=== PATIENT | female | born 1995 | race Caucasian/White ===

== ENCOUNTER 2018-10-11 21:53 | Inpatient (IN) | payer MEDICAID ==
[~2018-10-11] VITALS: Ht 152.4 cm; Wt 69.4 kg
[2018-10-11 22:35] VITALS: BP 137/89; PULSE 69; RESP 18
[2018-10-11] MEDS ORDERED: LACTATED RINGER'S 1,000 ML IV PRN (22:56)
[2018-10-11] MEDS ORDERED: METHYLERGONOVINE 0.2 MG INJ IM PRN (23:00)
[2018-10-11] MEDS ORDERED: IBUPROFEN 600 MG TAB PO PRN (23:00)
[2018-10-11] MEDS ORDERED: LIDOCAINE 1% (MPF) 30 ML INJ INJ PRN (23:00)
[2018-10-11] MEDS ORDERED: OXYTOCIN 30 UNITS/LR 500 ML IV PRN (23:00)
[2018-10-11] MEDS ORDERED: OXYTOCIN 30 UNITS/LR 500 ML IV SCH (23:00)
[2018-10-11] MEDS ORDERED: BUTORPHANOL 2 MG INJ IV PRN (23:00)
[2018-10-11] MEDS ORDERED: MISOPROSTOL 200 MCG TAB PR PRN (23:00)
[2018-10-11] MEDS ORDERED: PREN-93 PO (23:12)
[2018-10-11] MEDS: LACTATED RINGER'S 1,000 ML IV SCH (23:48)
[2018-10-12] MEDS ORDERED: FENTAnyl 2MCG/ML-ROPIV 0.2% 100 ML ONE (02:30)
--- NOTE | 2018-10-12 02:36 | PREAC ---
Date/Time of Note Date/Time of Note DATE: 10/12/18 TIME: 02:36 Anesthesia Eval and Record Evaluation Time Pre-Procedure Interview DATE: 10/12/18 TIME: 02:36 Age 22 Sex female NPO: Other (na) Preoperative diagnosis labor pain Planned procedure epidural Past Medical History Past Medical History: None Surgery & Anesthesia Issues No known issue Meds Anticoagulation: No Beta Rain within 24 hr: No Reason Beta Rain not given: Pt. not on B-Rain Reported Medications Vit No.124/Iron/FA ( Vitamin Tablet) 1 Each Tablet, 1 EACH PO, TAB 10/11/18 Current Medications Lactated Ringer's 1,000 ml @ 125 mls/hr Q8H IV Last administered on 10/11/18at 23:48; Admin Dose 125 MLS/HR; Start 10/11/18 at 22:56 Butorphanol Tartrate (Stadol) 2 mg Q2H PRN IV .PAIN; Start 10/11/18 at 23:00 Lidocaine (Xylocaine 1% (Mpf)) 30 ml ONCE PRN INJ .EPISIOTOMY; Start 10/11/18 at 23:00 Oxytocin/Lactated Ringer's 500 ml @ 500 mls/hr ONCE POST IV ; Start 10/11/18 at 23:00 Oxytocin/Lactated Ringer's 500 ml @ 125 mls/hr POST IV ; Start 10/11/18 at 23:00 Ibuprofen (Motrin) 600 mg ONCE PRN PO .PAIN 1-5; Start 10/11/18 at 23:00 Lactated Ringer's 1,000 ml @ 2,000 mls/hr Q30M PRN IV .ANESTHESIA; Start 10/11/18 at 22:56 Oxytocin/Lactated Ringer's 500 ml @ 0 mls/hr ONCE PRN IV .VAGINAL BLEEDING; Start 10/11/18 at 23:00 Methylergonovine Maleate (Methergine) 0.2 mg ONCE PRN IM .VAGINAL BLEEDING; Start 10/11/18 at 23:00 Carboprost Tromethamine (Hemabate) 250 mcg ONCE PRN IM .VAGINAL BLEEDING; Start 10/11/18 at 23:00 Misoprostol (Cytotec) 1,000 mcg ONCE PRN [place] .VAGINAL BLEEDING; Start 10/11/18 at 23:00 Meds reviewed: Yes Allergies Coded Allergies: No Known Allergies (Verified Allergy, Unknown, 10/11/18) No Known Allergy (Unverified , 10/11/18) Allergies Reviewed: Yes Labs/Studies Labs Reviewed: Reviewed by anesthesiologist Result Diagram: 10/11/18 2330 10/11/18 2330 Laboratory Tests 10/11/18 23:30 Blood Bank Test 10/11/18 23:30 Antibody Screen NEGATIVE Blood Type O POSITIVE Rh Immune Globulin Candidate NO test: N/A Pre-procedure Exam Last vitals Vital Signs Date Temp Pulse Resp B/P (MAP) Pulse Ox O2 O2 Flow FiO2 Time Delivery Rate 10/11/18 98.2 69 18 137/89 Room Air 22:35 (105) Airway: Adequate mouth opening, Adequate thyromental dist Mallampati: Mallampati IV Teeth: Normal Lung: Normal Heart: Normal ASA Physical Status ASA physical status: 2 Emergency: None Pre-operative Attestations Prior to commencing anesthesia and surgery, the patient was re-evaluated, there was verification of: *The patient's identity *The results of appropriate recent lab work and preoperative vital signs *The above evaluation not changing prior to induction *Anesthetic plan, risk benefits, alternative and complications discussed with patient/family; questions answered; patient/family understands, accepts and wishes to proceed. BON SALMON DO Oct 12, 2018 02:36
[2018-10-12] MEDS ORDERED: DIPHENHYDRAMINE 50 MG INJ IV PRN (03:00)
[2018-10-12] MEDS ORDERED: FENTAnyl 2MCG/ML-ROPIV 0.2% 100 ML BAG EPI SCH (03:00)
[2018-10-12] MEDS ORDERED: ONDANSETRON 4 MG INJ IV PRN (03:00)
[2018-10-12] MEDS ORDERED: NALOXONE (0.4 MG/ML) INJ IV PRN (03:00)
[2018-10-12] MEDS: LACTATED RINGER'S 1,000 ML IV SCH (03:14)
--- NOTE | 2018-10-12 09:21 | HP ---
Date/Time of Note Date/Time of Note DATE: 10/12/18 TIME: 09:20 OB - History Hx of Present Chief Complaint: contractions Estimated Due Date: Oct 21, 2018 : 1 Para: 0 Spontaneous : 0 Therapeutic : 0 Care: Good Care Ultrasounds: Normal mid trimester US Obstetrical Complications: None Medical Complications: None Past Family/Social History * Past Medical, Surgical, Family and Obstetric Histories reviewed from chart. GBS Status: Negative OB Admission Exam Vital Signs Vital Signs Vital Signs Date Temp Pulse Resp B/P (MAP) Pulse Ox O2 O2 Flow FiO2 Time Delivery Rate 10/11/18 98.2 69 18 137/89 Room Air 22:35 (105) Physical Exam HEENT: WNL Heart: Rhythm Normal Lungs: Clear, Equal Abdomen: WNL Extremities: Normal Reflexes: Normal Cervical Dilatation: 3cm Effacement: 75% Station: -1 Membranes: Ruptured Amniotic Fluid: Clear Heart Rate: 120's Accelerations: Accelerations Present Decelerations: No Decelerations Varibility: Moderate Last 72 hours Lab Results CBC & BMP 10/11/18 23:30 Liver Function Test 10/11/18 23:30 Alanine Aminotransferase (ALT/SGPT) 26 Albumin 3.6 Alkaline Phosphatase 174 H Aspartate Amino Transf (AST/SGOT) 19 Direct Bilirubin 0.00 Total Protein 7.1 OB Assessment/Plan Reason for admission: active labor Plan: Expectant Management KAVITA GAITAN MD Oct 12, 2018 09:21
[2018-10-12] MEDS: CARBOPROST 250 MCG INJ IM PRN ×2 (10:26→10:47)
[2018-10-12] MEDS ORDERED: TRANEXAMIC ACID 1GM/100ML(PMX) 100 ML IVPB ONE (11:00)
[2018-10-12] MEDS ORDERED: ONDANSETRON 4 MG INJ IV STA (11:13)
[2018-10-12] MEDS: OXYTOCIN 30 UNITS/LR 500 ML IV SCH ×2 (11:25→13:07)
[2018-10-12] MEDS ORDERED: CEFAZOLIN 2 GM/50 ML (PMX) 50 ML IVPB ONE (11:30)
[2018-10-12] MEDS ORDERED: KETOROLAC 30 MG INJ IV STA (12:31)
[2018-10-12] MEDS ORDERED: LACTATED RINGER'S 1,000 ML IV* SCH (13:55)
[2018-10-12] MEDS ORDERED: BENZOCAINE 20% 56 ML SPRAY TOP PRN (14:00)
[2018-10-12] MEDS ORDERED: DIBUCAINE 1% 30 GM OINT TOP PRN (14:00)
[2018-10-12] MEDS ORDERED: OXYTOCIN 30 UNITS/LR 500 ML IV PRN (14:00)
[2018-10-12] MEDS ORDERED: CARBOPROST 250 MCG INJ IM PRN (14:00)
[2018-10-12] MEDS ORDERED: METHYLERGONOVINE 0.2 MG INJ IM PRN (14:00)
[2018-10-12] MEDS ORDERED: MISOPROSTOL 200 MCG TAB PR PRN (14:00)
[2018-10-12] MEDS ORDERED: ACETAMINOPHEN 325 MG TAB PO PRN (14:00)
[2018-10-12] MEDS ORDERED: WITCH HAZEL/GLYCERIN PAD PR PRN (14:00)
[2018-10-12] MEDS ORDERED: HYDROCODONE/APAP (5/325) TAB PO PRN (14:00)
[2018-10-12 15:00] VITALS: BP 114/77; PULSE 106; RESP 16
[2018-10-12 16:30] VITALS: BP 124/82; PULSE 98; RESP 20
[2018-10-12 17:32] VITALS: BP 119/81; PULSE 94; RESP 20
[2018-10-12] MEDS: IBUPROFEN 600 MG TAB PO SCH ×2 (18:10→23:39)
[2018-10-12 18:30] VITALS: BP 118/84; PULSE 89; RESP 18
[2018-10-12 19:45] VITALS: BP 118/70; PULSE 93; RESP 18
--- NOTE | 2018-10-12 19:53 | LDN ---
Date/Time of Note Date/Time of Note DATE: 10/12/18 TIME: 19:49 Delivery Summary over intact perineum. Uterine atony noted. Oxytocin, Methergine, Hemabate, Cytotec and tranexamic acid given. Using large curette, sharp curettage was performed. Placenta Delivered: Spontaneously Meconium: none Episiotomy: No Laceration repair: First degree perineal laceration repaired with 3-0 Vicryl. Anesthesia type: Epidural Estimated blood loss: 1000 Sponge & Needle done & correct: Yes All needle counts correct: Yes Any foreign bodies felt in the: No Delivery Information Sex Infant Sex: male Apgars 1 Minute: 9 5 Minute: 9 Suctioning Nose & mouth suctioned at deidre: No Delee suction performed: No Umbilical Cord Umbilical cord with: 3 Vessels Cord presentations: nuchal cord Nuchal cord present X: 1 Cord Blood was obtained: Yes Mother & Baby Disposition Disposition Mom & Baby to Maternity; Good: Yes KAVITA GAITAN MD Oct 12, 2018 19:53
[2018-10-12] MEDS: SENNA/DOCUSATE NA (8.6MG/50MG) TAB PO SCH (20:49)
[2018-10-12] MEDS: FERROUS SULFATE (EC) 325 MG TAB PO SCH (20:49)
[2018-10-13] VITALS: BP 120/82; PULSE 105; RESP 18
[2018-10-13 04:00] VITALS: BP 115/72; PULSE 101; RESP 18
[2018-10-13] MEDS: IBUPROFEN 600 MG TAB PO SCH ×4 (05:32→23:46)
[2018-10-13] MEDS: SENNA/DOCUSATE NA (8.6MG/50MG) TAB PO SCH ×2 (08:05→21:00)
[2018-10-13 08:25] VITALS: BP 114/61; PULSE 101; RESP 18
[2018-10-13] MEDS: FERROUS SULFATE (EC) 325 MG TAB PO SCH ×3 (08:58→21:30)
[2018-10-13] MEDS: FOLIC ACID 1 MG TAB PO SCH (15:58)
[2018-10-13] MEDS: PRENATAL VITAMIN PO SCH (15:58)
[2018-10-13 15:59] VITALS: BP 112/67; PULSE 91; RESP 20
--- NOTE | 2018-10-13 19:19 | QN ---
Documentation Comment No complaint Afebrile VSS Fundus firm Lochia scant Hct 20 Stable patient is asymptomatic Fe supplement CBC Kate. KAVITA GAITAN MD Oct 13, 2018 19:19
[2018-10-13 20:00] VITALS: BP 130/72; PULSE 116; RESP 20
[2018-10-14 03:23] VITALS: BP 128/62; PULSE 78; RESP 20
[2018-10-14] MEDS: IBUPROFEN 600 MG TAB PO SCH ×4 (05:29→23:58)
[2018-10-14 08:00] VITALS: BP 113/60; PULSE 93; RESP 16
[2018-10-14] MEDS ORDERED: DIPHTH/TET/ACEL PERTUSS (ADULT) 0.5 ML VIAL IM* ONE (09:00)
[2018-10-14] MEDS: PRENATAL VITAMIN PO SCH (10:25)
[2018-10-14] MEDS: FERROUS SULFATE (EC) 325 MG TAB PO SCH ×3 (10:25→21:43)
[2018-10-14] MEDS: FOLIC ACID 1 MG TAB PO SCH (10:25)
[2018-10-14] MEDS: SENNA/DOCUSATE NA (8.6MG/50MG) TAB PO SCH ×2 (10:25→21:43)
[2018-10-14 12:00] VITALS: BP 110/60; PULSE 94; RESP 20
--- NOTE | 2018-10-14 14:44 | QN ---
Documentation Comment Patient c/o headache and dizziness. No other complaint Afebrile VSS Fundus firm Lochia scant Hgb 6.7 Patient counseled about the option of receiving blood transfusion. Risks, benefits and alternatives were explained to the patient who stated she understood and gave informed consent. Will transfuse one unit of RBC. KAVITA GAITAN MD Oct 14, 2018 14:44
[2018-10-14] MEDS ORDERED: SOD CHLORIDE 0.9% 1,000 ML IV SCH (15:55)
[2018-10-14 16:00] VITALS: BP 119/76; PULSE 76; RESP 18
[2018-10-14 20:00] VITALS: BP 116/67; PULSE 84; RESP 18
[2018-10-15 03:53] VITALS: BP 111/74; PULSE 76; RESP 17
[2018-10-15] MEDS: IBUPROFEN 600 MG TAB PO SCH ×2 (05:44→11:42)
[2018-10-15 07:30] VITALS: BP 128/72; PULSE 74; RESP 18
[2018-10-15] MEDS: PRENATAL VITAMIN PO SCH (10:45)
[2018-10-15] MEDS: FOLIC ACID 1 MG TAB PO SCH (10:45)
[2018-10-15] MEDS: SENNA/DOCUSATE NA (8.6MG/50MG) TAB PO SCH (10:45)
[2018-10-15] MEDS: FERROUS SULFATE (EC) 325 MG TAB PO SCH ×2 (10:47→14:01)
--- NOTE | 2018-10-15 14:32 | DS ---
Date/Time of Note Date/Time of Note DATE: 10/15/18 TIME: 14:31 Obstetrical Discharge Record Final Diagnosis Final Diagnosis: Term delivered Other Final Diagnosis hemorrhage Anemia associated with acute blood loss Vaginal Delivery Obstetrical Delivery: Spontaneous Condition on Discharge Physical Assessment Voiding: Yes Bowel Movement: Yes Breast: Soft, non-tender, Filling Fundus: Firm Calf Tenderness: No Patient Condition: Stable KAVITA GAITAN MD Oct 15, 2018 14:32
== END 2018-10-15 16:35 | disposition home or self-care (01) | DRG 806 ==
LOC: L-D 21:53 → OBT 21:53 → L-D 21:55 → OBT 22:44 → L-D 22:44 → PP1 10-12 16:37
PROVIDERS: ADMIT Obstetrics & Gynecology; ATTEND Obstetrics & Gynecology
PROC: 10E0XZZ Delivery of Products of Conception, External Approach (ICD-10-PCS; principal; 2018-10-12)
PROC: 3E033VJ Introduction of Other Hormone into Peripheral Vein, Percutaneous Approach (ICD-10-PCS; 2018-10-12)
PROC: 0HQ9XZZ Repair Perineum Skin, External Approach (ICD-10-PCS; 2018-10-12)
PROC: 30233N1 Transfusion of Nonautologous Red Blood Cells into Peripheral Vein, Percutaneous Approach (ICD-10-PCS; 2018-10-14)
DX: O69.81X0 Labor and delivery complicated by cord around neck, without compression, not applicable or unspecified (principal); D62 Acute posthemorrhagic anemia; Z37.0 Single live birth; O70.0 First degree perineal laceration during delivery; O90.81 Anemia of the puerperium; Z3A.38 38 weeks gestation of pregnancy
CPT/HCPCS: 36430; 62319; 76815; 76818; 80053; 81001; 84112; 84560; 85025; 85610; 85730; 86592; 86850; 86900; 86901; 86920; 87086; 87340; 90715; G0463; J0690; J1885; J2210; J2405; J2590; J3010; J7030; J7120; P9016

== ENCOUNTER 2018-10-24 19:00 | Emergency (ER) | payer MEDICAID ==
[~2018-10-24] VITALS: Wt 59.7 kg
[~2018-10-24 19:00] MED LIST: PREN-93 PO
[2018-10-24] MEDS ORDERED: PSYL1040 PO (23:36)
[2018-10-24] MEDS ORDERED: DOCU-144 PO (23:36)
--- NOTE | 2018-10-24 23:52 | ERD ---
ER Documentation Chief Complaint Chief Complaint bib self, cc: constipation for 4 days, has not tried any otc remedy HPI 22-year-old female presents with complaint of constipation for the last 5 days. States that it has been constipation started when she started taking iron for anemia. Denies taking any treatments. Denies nausea, vomiting, diarrhea, abdominal pain, fevers. Denies past medical history. Denies allergies. Denies medications. Denies surgeries. Denies alcohol, tobacco, drug use. Up to date on vaccines. ROS All systems reviewed and are negative except as per history of present illness. Medications Home Meds Active Scripts Psyllium Seed* (Metamucil* Powder) 1,040 Gm Powder, 10 GM PO TID for constipation, #1 BOTTLE Prov:JESUSMASSIMORICK 10/24/18 Docusate Sodium* (Colace*) 100 Mg Capsule, 100 MG PO TID for constipation for 7 Days, #30 CAP Prov:RICK GUTIERREZ 10/24/18 Reported Medications Vit No.124/Iron/FA ( Vitamin Tablet) 1 Each Tablet, 1 EACH PO, TAB 10/11/18 Allergies Allergies: Coded Allergies: No Known Allergies (Verified Allergy, Unknown, 10/11/18) PMhx/Soc Medical and Surgical Hx: pt denies Medical Hx, pt denies Surgical Hx History of Surgery: No Anesthesia Reaction: No Hx Neurological Disorder: No Hx Respiratory Disorders: No Hx Cardiac Disorders: No Hx Psychiatric Problems: No Hx Miscellaneous Medical Probl: No Hx Alcohol Use: No Hx Substance Use: No Hx Tobacco Use: No Smoking Status: Never smoker FmHx Family History: No diabetes, No coronary disease, No other Physical Exam Vitals Vital Signs Date Temp Pulse Resp B/P (MAP) Pulse Ox O2 O2 Flow FiO2 Time Delivery Rate 10/24/18 98.8 97 19 143/93 100 19:24 (110) Physical Exam Const: No acute distress Head: Atraumatic Eyes: Normal Conjunctiva ENT: Normal External Ears, Nose and Mouth. Neck: Full range of motion. No meningismus. Resp: Clear to auscultation bilaterally Cardio: Regular rate and rhythm, no murmurs Abd: Soft, non tender, non distended. Normal bowel sounds. No McBurney's. Negative Acosta's. Skin: No petechiae or rashes Back: No midline or flank tenderness Ext: No cyanosis, or edema Neur: Awake and alert Psych: Normal Mood and Affect Results 24 hrs Current Medications Medications Dose Sig/Dean Start Time Status Last (Trade) Ordered Route PRN Stop Time Admin Dose Reason Admin Magnesium 30 ml ONCE ONCE 10/25/18 Hydroxide PO 00:00 10/25/18 (Milk Of Mag) 00:01 Procedures/MDM 22-year-old female presents with complaint of constipation for the last 5 days. States that it has been constipation started when she started taking iron for anemia. Denies taking any treatments. Denies nausea, vomiting, diarrhea, abdominal pain, fevers. I will suspicion for bowel obstruction, acute abdomen, or other emergent condition. Constipation most likely due to iron intake. Patient given milk of magnesium in the ER and discharged with prescription for Colace and Metamucil. Also encourage patient to increased water intake as well as fiber intake. Patient discharged with strict ER precautions. Patient advised to follow up with PMD. All questions answered at discharge. Departure Diagnosis: Primary Impression: Constipation Constipation type: drug induced constipation Qualified Codes: K59.03 - Drug induced constipation Condition: Stable Patient Instructions: Treating Constipation, Constipation (Adult) Referrals: [facility] YOU HAVE RECEIVED A MEDICAL SCREENING EXAM AND THE RESULTS INDICATE THAT YOU DO NOT HAVE A CONDITION THAT REQUIRES URGENT TREATMENT IN THE EMERGENCY DEPARTMENT. FURTHER EVALUATION AND TREATMENT OF YOUR CONDITION CAN WAIT UNTIL YOU ARE SEEN IN YOUR DOCTORS OFFICE WITHIN THE NEXT 1-2 DAYS. IT IS YOUR RESPONSIBILITY TO MAKE AN APPOINTMENT FOR FOLOW-UP CARE. IF YOU HAVE A PRIMARY DOCTOR --you should call your primary doctor and schedule an appointment IF YOU DO NOT HAVE A PRIMARY DOCTOR YOU CAN CALL OUR PHYSICIAN REFERRAL HOTLINE AT IF YOU CAN NOT AFFORD TO SEE A PHYSICIAN YOU CAN CHOSE FROM THE FOLLOWING [facility] [address] [facility]. [facility] [address] [facility] [address] [facility] [address] [facility]. [facility] [address] [facility]. [facility]. [address] Additional Instructions: FOLLOW UP WITH YOUR PRIMARY CARE PHYSICIAN TOMORROW.Return to this facility if you are not improving as expected. RICK GUTIERREZ Oct 24, 2018 23:52
[2018-10-25] MEDS ORDERED: MAGNESIUM HYDROXIDE 30ML CUP PO ONE
[2018-10-25 00:20] VITALS: BP 129/80; PULSE 75; RESP 18
== END 2018-10-25 00:21 | disposition home or self-care (01) ==
LOC: FTE 19:00
DX: K59.03 Drug induced constipation (principal)
CPT/HCPCS: Z7502; Z7610; 99282